=== PATIENT | male | born 1970 | race African-American/Black ===

== ENCOUNTER 2019-11-19 17:23 | Emergency (ER) | payer OTHER ==
[2019-11-19 17:34] VITALS: BP 122/75; PULSE 77; TEMP 97.3; BMI 29.0
[2019-11-19] MEDS ORDERED: IBUPROFEN 400 MG TABLET (FP) PO ONE ×2 (18:08→18:09)
[2019-11-19] MEDS ORDERED: IBUPROFEN 600 MG TABLET (FP) PO ONE ×2 (18:10→18:13)
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
== END 2019-11-19 18:24 | disposition home or self-care (01) ==
LOC: JERFT 17:23
DX: S90.31XA Contusion of right foot, initial encounter (principal); M79.89 Other specified soft tissue disorders; Z91.013 Allergy to seafood
CPT/HCPCS: 73630-TC-RT-FY; 99283-25

== ENCOUNTER 2024-02-14 18:13 | Emergency (ER) | payer OTHER ==
[2024-02-14 18:27] VITALS: BP 119/73; PULSE 80; RESP 16; TEMP 99.4; BMI 27.6
[2024-02-14] MEDS ORDERED: ACETAMINOPHEN INJECTION 100 ML IVPB ONE (20:22)
[2024-02-14] MEDS ORDERED: FAMOTIDINE 20 MG/50 ML IVPB 20 MG/50 ML MG IVPB ONE (20:22)
[2024-02-14] MEDS ORDERED: ONDANSETRON 4 MG/2 ML VIAL ONE (20:22)
[2024-02-14 20:26] LABS: BASO % 0.5 % (0-2.0); EOS % 0.3 % (0-4.5); HEMATOCRIT 45.4 % (35.4-49); HEMOGLOBIN 15.1 GM/dL (11.7-16.9); LYMPH % 20.4 % (8-40); MCHC 33.2 g/dl (32.0-35.9); MEAN CELL VOLUME 87.2 fl (80-96); MEAN PLT VOLUME 8.5 fl (7.5-11.1); NEUT % 72.8 % (42.8-82.8); PLATELET COUNT 184 10^3/uL (134-434); RBC 5.21 M/mm3 (4.00-5.60); WHITE BLOOD COUNT 12.7 K/mm3 (4.0-10.0)
[2024-02-14] MEDS: ACETAMINOPHEN 1000 MG/100 ML BAG IVPB ONE (20:35)
[2024-02-14] MEDS: SODIUM CHLORIDE 0.9% 500 ML INFUS.BAG IV ONE (20:35)
[2024-02-14] MEDS: ONDANSETRON 4 MG/2 ML VIAL IVPUSH ONE (20:36)
[2024-02-14] MEDS: FAMOTIDINE 20 MG/50 ML IVPB 20 MG/50 ML MG IVPB ONE (20:36)
[2024-02-14 20:50] LABS: POTASSIUM 4.1 mmol/L (3.5-5.1)
[2024-02-14 20:53] LABS: ALBUMIN 3.7 g/dl (3.4-5.0); BLOOD UREA NITROGEN 8.2 mg/dL (7-18); CALCIUM 9.3 mg/dL (8.5-10.1)
[2024-02-14 20:56] LABS: CREATININE 1.1 mg/dL (0.55-1.3)
[2024-02-14 20:58] LABS: BILIRUBIN,TOTAL 0.6 mg/dL (0.2-1); TOT PROT 7.5 g/dl (6.4-8.2)
== END 2024-02-14 22:02 | disposition home or self-care (01) ==
LOC: JER 18:13
PROC: 3E033GC Introduction of Other Therapeutic Substance into Peripheral Vein, Percutaneous Approach (ICD-10-PCS; principal; 2024-02-14)
PROC: 3E033NZ Introduction of Analgesics, Hypnotics, Sedatives into Peripheral Vein, Percutaneous Approach (ICD-10-PCS; 2024-02-14)
PROC: 3E033GC Introduction of Other Therapeutic Substance into Peripheral Vein, Percutaneous Approach (ICD-10-PCS; 2024-02-14)
DX: K52.9 Noninfective gastroenteritis and colitis, unspecified (principal); R11.2 Nausea with vomiting, unspecified; R14.0 Abdominal distension (gaseous); Z20.822 Contact with and (suspected) exposure to COVID-19
CPT/HCPCS: 0241U-QW; 36415; 80053; 83605; 83690; 84484; 85025; 93005; 93010; 99284-25; J0131

== ENCOUNTER 2025-04-26 11:56 | Observation (INO) | payer OTHER ==
[2025-04-26 12:04] VITALS: BMI 28.3
[2025-04-26 13:47] LABS: ABSOLUTE IMMATURE GRANULOCYTES 0.04 x10^3/uL (0.0-0.031); BASOPHILS # 0.04 x10^3/uL (0.01-0.08); EOSINOPHIL % 2.8 % (0.8-7.0); EOSINOPHILS # 0.17 x10^3/uL (0.04-0.54); MCHC 32.9 g/dl (32.3-36.5); MEAN CELL VOLUME 85.2 fl (79.0-92.2); MEAN PLT VOLUME 9.6 fl (9.4-12.4); MONOCYTE # 0.45 x10^3/uL (0.30-0.82); MONOCYTE % 7.5 % (5.3-12.2); RDW 13.9 % (12.2-16.1)
[2025-04-26 13:55] LABS: INR 1.25 (0.83-1.09); PROTHROMBIN TIME (PATIENT) 13.8 SEC (9.7-13.0)
[2025-04-26 13:57] LABS: ACTIVATED PTT 32.8 SECONDS (25.2-36.5)
[2025-04-26 14:37] LABS: HCV DIAGNOSTIC IN-HOUSE W/RFLX NON-REACTIVE (NONREACTIVE); HIV INTERPRETATION NEGATIVE (NEGATIVE)
[2025-04-26 15:07] LABS: GLUCOSE,RANDOM 117.0 mg/dL (74-106); TOT PROT 6.9 g/dl (6.4-8.2)
[2025-04-26 15:08] LABS: CO2 19.0 mmol/L (21-32)
[2025-04-26 15:09] LABS: ALK PHOS 94.0 U/L (40-150)
[2025-04-26 15:12] LABS: CREATININE 0.92 mg/dL (0.55-1.3); SGOT/AST 20.0 U/L (5-34); SGPT/ALT 14.0 U/L (0-55)
[2025-04-26 15:19] LABS: N-TERMINAL BNP 57.4 pg/mL (0-299.9)
[2025-04-26] MEDS ORDERED: ACETAMINOPHEN 325 MG TABLET (FP) PO PRN (16:38)
[2025-04-26] MEDS: FAMOTIDINE 20 MG/50 ML IVPB 20 MG/50 ML MG IVPB ONE (17:41)
[2025-04-26] MEDS: HEPARIN NA (PORCINE) 5,000 UNITS/ML 1ML VIAL SQ SCH (21:19)
[2025-04-26] MEDS: ATORVASTATIN CA 20 MG TABLET (FP) PO SCH (21:19)
[2025-04-27 08:34] LABS: MCHC 31.9 g/dl (32.3-36.5); MEAN CELL VOLUME 86.9 fl (79.0-92.2); MEAN PLT VOLUME 9.9 fl (9.4-12.4); RDW 14.3 % (12.2-16.1)
[2025-04-27 09:06] VITALS: BP 112/86; PULSE 79; RESP 17; TEMP 98.2
[2025-04-27 09:17] LABS: GLUCOSE,RANDOM 90.0 mg/dL (74-106); TOT PROT 6.7 g/dl (6.4-8.2)
[2025-04-27 09:18] LABS: CO2 24.0 mmol/L (21-32)
[2025-04-27 09:20] LABS: ALK PHOS 94.0 U/L (40-150)
[2025-04-27 09:22] LABS: SGOT/AST 19.0 U/L (5-34); SGPT/ALT 16.0 U/L (0-55)
[2025-04-27 09:23] LABS: CREATININE 1.02 mg/dL (0.55-1.3); LDL CHOLESTEROL (ONLY SJRH) 125.0 mg/dL (5-100)
[2025-04-27] MEDS: ASPIRIN COATED 81 MG TABLET.EC PO SCH (09:52)
== END 2025-04-27 14:00 | disposition home or self-care (01) ==
LOC: JER 11:56 → JERBED 15:10 → J6W TELE 16:45
PROVIDERS: ADMIT Family Medicine; ATTEND Family Medicine
PROC: 3E033GC Introduction of Other Therapeutic Substance into Peripheral Vein, Percutaneous Approach (ICD-10-PCS; principal; 2025-04-26)
DX: R07.9 Chest pain, unspecified (principal); E78.5 Hyperlipidemia, unspecified; E11.9 Type 2 diabetes mellitus without complications; Z91.148 Patient's other noncompliance with medication regimen for other reason
CPT/HCPCS: 36415; 71045-TC-FY; 80053; 80061; 83036; 83880; 84484; 85025; 85027; 85379; 85610; 85730; 86803; 87389; 93005; 93010; 93017; 93018; 96365; 99285-25; G0378